=== PATIENT | female | born 1940 | race African-American/Black ===

== ENCOUNTER 2020-11-04 14:48 | Inpatient (IN) | payer OTHER, BC ==
[2020-11-04] MEDS ORDERED: NALOXONE HCL 0.4 MG/ML VIAL IVPUSH ONE (16:20)
[2020-11-04 16:21] LABS: BASO % 0.2 % (0-2.0); HEMATOCRIT 51.7 % (32.4-45.2); HEMOGLOBIN 16.6 GM/dL (10.7-15.3); LYMPH % 5.2 % (8-40); MCH 27.2 pg (25.7-33.7); MCHC 32.1 g/dl (32.0-36.0); MEAN CELL VOLUME 84.7 fl (80-96); MEAN PLT VOLUME 8.9 fl (7.5-11.1); MONO % 5.1 % (3.8-10.2); NEUT % 89.5 % (42.8-82.8); PLATELET COUNT 237 10^3/uL (134-434); RBC 6.11 M/mm3 (3.60-5.2); RDW 14.8 % (11.6-15.6); WHITE BLOOD COUNT 14.6 K/mm3 (4.0-10.0)
[2020-11-04] MEDS ORDERED: NALOXONE HCL 0.4 MG/ML VIAL ONE (16:22)
[2020-11-04 16:29] LABS: VENOUS BASE EXCESS 0.3 mmol/L (-2-2); VENOUS O2 SATURATION 44.8 % (70-80); VENOUS PCO2 51.1 mmHg (38-52); VENOUS PH 7.342 (7.310-7.410)
[2020-11-04 16:30] LABS: INR 0.92 (0.83-1.09); PROTHROMBIN TIME (PATIENT) 11.3 SEC (9.7-13.0)
[2020-11-04 16:33] LABS: ACTIVATED PTT 19.7 SECONDS (25.2-36.5)
[2020-11-04 16:40] LABS: MAGNESIUM 3.2 mg/dL (1.8-2.4)
[2020-11-04 16:44] LABS: PHOSPHOROUS 4.6 mg/dL (2.5-4.9)
[2020-11-04] MEDS ORDERED: SODIUM CHLORIDE 0.9% 1000 ML INFUS.BAG IV ONE (16:50)
[2020-11-04 16:55] LABS: LACTIC ACID 2.5 mmol/L (0.4-2.0)
[2020-11-04 17:12] LABS: CHLORIDE 111 mmol/L (98-107); SODIUM 149 mmol/L (136-145)
[2020-11-04 17:14] LABS: CALCIUM 10.8 mg/dL (8.5-10.1)
[2020-11-04 17:15] LABS: ALBUMIN 3.7 g/dl (3.4-5.0); ANION GAP 10 MMOL/L (8-16); BLOOD UREA NITROGEN 50.7 mg/dL (7-18); CO2 28 mmol/L (21-32); GLUCOSE,RANDOM 143 mg/dL (74-106)
[2020-11-04 17:18] LABS: CREATININE 1.2 mg/dL (0.55-1.3); SGOT/AST 60 U/L (15-37); SGPT/ALT 52 U/L (13-61)
[2020-11-04 17:20] LABS: BILIRUBIN,TOTAL 0.9 mg/dL (0.2-1); TOT PROT 8.9 g/dl (6.4-8.2)
[2020-11-04 17:21] LABS: ALK PHOS 83 U/L (45-117)
[2020-11-04] MEDS ORDERED: ASPIRIN 300 MG SUPP.RECT PR ONE (17:27)
[2020-11-04] MEDS ORDERED: VANCOMYCIN 1 GM in D5W (PRE-DOCKED) 1,000 MG/250 ML IVPB ONE (17:27)
[2020-11-04] MEDS ORDERED: PIPERACILLIN/TAZOB 4.5 GM 4.5 GM in DEXTROSE 5%-WATER 100 ML IVPB ONE (17:27)
[2020-11-04] MEDS ORDERED: SODIUM CHLORIDE 0.9% 500 ML INFUS.BAG IV ONE (17:56)
[2020-11-04] MEDS ORDERED: PIPERACILLIN/TAZOB 4.5 GM 4.5 GM/100 ML BAG IVPB ONE (18:10)
[2020-11-04] MEDS ORDERED: VANCOMYCIN 1 GRAM (PRE-DOCKED) 1,000 MG/250 ML BAG IVPB ONE (18:10)
[2020-11-04] MEDS ORDERED: ASPIRIN 300 MG SUPP.RECT RC ONE (18:10)
[2020-11-04 18:21] LABS: EPI CELLS 32 /uL (0-25.1); HYALINE CASTS 35 /uL (0-3.1); URINE APPEARANCE CLEAR; URINE BACTERIA 22 /uL (0-1359); URINE BILIRUBIN NEGATIVE (NEGATIVE); URINE COLOR DK YELLOW; URINE GLUCOSE (UA) NEGATIVE (NEGATIVE); URINE KETONE 1+ (NEGATIVE); URINE LEUK ESTERASE NEGATIVE (NEGATIVE); URINE NITRITE NEGATIVE (NEGATIVE); URINE PROTEIN 2+ (NEGATIVE); URINE WBC 23 /uL (0-25.8)
[2020-11-04 19:39] LABS: URINE RBC 42.1 /uL (0-23.9)
[2020-11-04 21:40] LABS: HIV INTERPRETATION NEGATIVE (NEGATIVE)
[2020-11-04 22:06] LABS: LACTIC ACID 2.1 mmol/L (0.4-2.0)
[2020-11-04] MEDS ORDERED: SODIUM CHLORIDE 0.45% 1,000 ML IV SCH (22:15)
[2020-11-04] MEDS: MUPIROCIN 2% TOPICAL OINTMENT FOR DECOLONIZATION NS SCH (23:00)
[2020-11-05 01:10] LABS: N-TERMINAL BNP 1034.2 pg/ml (5-450)
[2020-11-05 07:13] LABS: INR 0.97 (0.83-1.09)
[2020-11-05 07:17] LABS: HEMATOCRIT 41.3 % (32.4-45.2); HEMOGLOBIN 13.3 GM/dL (10.7-15.3); MCH 27.1 pg (25.7-33.7); MCHC 32.3 g/dl (32.0-36.0); MEAN CELL VOLUME 83.8 fl (80-96); MEAN PLT VOLUME 9.3 fl (7.5-11.1); PLATELET COUNT 186 10^3/uL (134-434); RBC 4.92 M/mm3 (3.60-5.2); RDW 14.4 % (11.6-15.6); WHITE BLOOD COUNT 18.8 K/mm3 (4.0-10.0)
[2020-11-05 07:35] LABS: BLOOD UREA NITROGEN 34.6 mg/dL (7-18)
[2020-11-05 07:36] LABS: PHOSPHOROUS 2.8 mg/dL (2.5-4.9)
[2020-11-05 07:38] LABS: CREATININE 0.8 mg/dL (0.55-1.3)
[2020-11-05 07:39] LABS: BILIRUBIN,TOTAL 0.8 mg/dL (0.2-1)
[2020-11-05 07:44] LABS: ALBUMIN 2.7 g/dl (3.4-5.0); CALCIUM 9.1 mg/dL (8.5-10.1); TOT PROT 6.7 g/dl (6.4-8.2)
[2020-11-05] MEDS ORDERED: LACTATED RINGERS SOLUTION 1,000 ML/1,000 ML INFUS.BAG IV SCH ×2 (08:30→12:45)
[2020-11-05] MEDS ORDERED: SODIUM CHLORIDE 0.45% 1,000 ML IV SCH (09:15)
[2020-11-05] MEDS ORDERED: PT OWN MED DRAWER 7, Y5N ONE ×2 (09:36→14:50)
[2020-11-05] MEDS: MUPIROCIN 2% TOPICAL OINTMENT FOR DECOLONIZATION NS SCH ×3 (09:37→21:59)
[2020-11-05 10:00] LABS: ANISOCYTOSIS 2+; MACROCYTOSIS 0; PLATELET ESTIMATE NORMAL; TEAR DROP CELLS 1+
[2020-11-05] MEDS ORDERED: PIPERACILLIN/TAZOB 4.5 GM 4.5 GM in DEXTROSE 5%-WATER 100 ML IVPB SCH ×2 (13:15→15:00)
[2020-11-05] MEDS ORDERED: TROPICAMIDE 1% OPHTH SOLN 15 ML BOTTLE OD ONE (13:34)
[2020-11-05] MEDS ORDERED: TROPICAMIDE 1% OPHTH SOLN 15 ML BOTTLE OU ONE (13:34)
[2020-11-05] MEDS ORDERED: PHENYLEPHRINE 2.5% OPHTH SOLN 15 ML BOTTLE OU ONE (13:34)
[2020-11-05] MEDS ORDERED: PHENYLEPHRINE 2.5% OPHTH SOLN 15 ML BOTTLE OD ONE (13:38)
[2020-11-05] MEDS ORDERED: DEXTROSE 5%-WATER 100 ML IVPB ONE ×3 (13:39→22:33)
[2020-11-05] MEDS ORDERED: PIPERACILLIN/TAZOBACTAM 4.5 GM VIAL IVPB ONE ×3 (13:39→22:33)
[2020-11-05] MEDS: PIPERACILLIN/TAZOB 4.5 GM 4.5 GM in DEXTROSE 5%-WATER 100 ML IVPB SCH ×2 (13:55→18:01)
[2020-11-05 16:07] LABS: CALCIUM 9.6 mg/dL (8.5-10.1)
[2020-11-05 16:08] LABS: BLOOD UREA NITROGEN 25.1 mg/dL (7-18)
[2020-11-05 16:11] LABS: CREATININE 0.8 mg/dL (0.55-1.3)
[2020-11-05] MEDS: VANCOMYCIN 1 GRAM (PRE-DOCKED) 1,000 MG/250 ML BAG IVPB SCH (16:38)
[2020-11-05] MEDS: ASPIRIN 300 MG SUPP.RECT RC SCH (16:38)
[2020-11-05] MEDS: AMINO ACIDS 4.25%/D5W 1,000 ML IV SCH (18:02)
[2020-11-05] MEDS: CHLORHEXIDINE GLUCONATE 4% CLEANSER FOR DECOLONIZATION TP SCH (21:59)
[2020-11-05] MEDS ORDERED: ACETAMINOPHEN 1000 MG/100 ML VIAL (NON FORMULARY) IVPB ONE (22:02)
[2020-11-06] MEDS: PIPERACILLIN/TAZOB 4.5 GM 4.5 GM in DEXTROSE 5%-WATER 100 ML IVPB SCH ×3 (02:22→18:09)
[2020-11-06] MEDS: AMINO ACIDS 4.25%/D5W 1,000 ML IV SCH ×2 (02:22→05:43)
[2020-11-06 07:12] LABS: BLOOD UREA NITROGEN 27.8 mg/dL (7-18); CALCIUM 8.6 mg/dL (8.5-10.1); HEMATOCRIT 40.2 % (32.4-45.2); MCH 27.7 pg (25.7-33.7); MCHC 32.4 g/dl (32.0-36.0); MEAN CELL VOLUME 85.5 fl (80-96); MEAN PLT VOLUME 8.9 fl (7.5-11.1); PLATELET COUNT 148 10^3/uL (134-434); RDW 14.6 % (11.6-15.6); WHITE BLOOD COUNT 12.6 K/mm3 (4.0-10.0)
[2020-11-06 07:15] LABS: CREATININE 0.7 mg/dL (0.55-1.3)
[2020-11-06 07:17] LABS: BILIRUBIN,TOTAL 0.8 mg/dL (0.2-1)
[2020-11-06 07:19] LABS: ALBUMIN 2.2 g/dl (3.4-5.0)
[2020-11-06] MEDS ORDERED: PIPERACILLIN/TAZOBACTAM 4.5 GM VIAL IVPB ONE ×2 (09:22→16:41)
[2020-11-06 09:25] LABS: ANISOCYTOSIS 1+; MACROCYTOSIS 0; PLATELET ESTIMATE DECREASED
[2020-11-06] MEDS: MUPIROCIN 2% TOPICAL OINTMENT FOR DECOLONIZATION NS SCH ×2 (09:38→21:26)
[2020-11-06] MEDS: ASPIRIN 300 MG SUPP.RECT RC SCH (09:38)
[2020-11-06] MEDS: LABETALOL HCL 5 MG/1 ML (100MG/20 ML VIAL) IVPUSH PRN ×3 (10:14→18:09)
[2020-11-06] MEDS ORDERED: SODIUM CHLORIDE 0.45% 1,000 ML IV SCH (10:15)
[2020-11-06 14:42] VITALS: BMI 16.0
[2020-11-06] MEDS ORDERED: DEXTROSE 5%-WATER 100 ML IVPB ONE (16:41)
[2020-11-06] MEDS: VANCOMYCIN 1 GRAM (PRE-DOCKED) 1,000 MG/250 ML BAG IVPB SCH (17:00)
[2020-11-06] MEDS ORDERED: HALOPERIDOL LACTATE 5 MG/ML IM ONE (18:00)
[2020-11-06] MEDS ORDERED: ACETAMINOPHEN 1000 MG/100 ML VIAL (NON FORMULARY) IVPB PRN (18:19)
[2020-11-06] MEDS: ATORVASTATIN CA 40 MG TABLET (FP) PO SCH (21:26)
[2020-11-06] MEDS: CHLORHEXIDINE GLUCONATE 4% CLEANSER FOR DECOLONIZATION TP SCH (21:26)
[2020-11-07] MEDS: PIPERACILLIN/TAZOB 4.5 GM 4.5 GM in DEXTROSE 5%-WATER 100 ML IVPB SCH ×3 (02:55→17:54)
[2020-11-07] MEDS ORDERED: PIPERACILLIN/TAZOBACTAM 4.5 GM VIAL IVPB ONE ×5 (03:27→19:57)
[2020-11-07] MEDS ORDERED: DEXTROSE 5%-WATER 100 ML IVPB ONE ×4 (03:27→19:57)
[2020-11-07 08:07] LABS: BASO % 0.1 % (0-2.0); EOS % 0.3 % (0-4.5); HEMATOCRIT 39.7 % (32.4-45.2); HEMOGLOBIN 12.9 GM/dL (10.7-15.3); MCH 27.6 pg (25.7-33.7); MCHC 32.4 g/dl (32.0-36.0); MONO % 5.2 % (3.8-10.2); NEUT % 81.4 % (42.8-82.8); PLATELET COUNT 171 10^3/uL (134-434); RBC 4.68 M/mm3 (3.60-5.2); RDW 14.2 % (11.6-15.6); WHITE BLOOD COUNT 12.8 K/mm3 (4.0-10.0)
[2020-11-07 08:25] LABS: CALCIUM 8.6 mg/dL (8.5-10.1)
[2020-11-07 08:26] LABS: ALBUMIN 2.1 g/dl (3.4-5.0); BLOOD UREA NITROGEN 13.4 mg/dL (7-18)
[2020-11-07 08:29] LABS: CREATININE 0.6 mg/dL (0.55-1.3); MAGNESIUM 2.1 mg/dL (1.8-2.4); PHOSPHOROUS 2.1 mg/dL (2.5-4.9)
[2020-11-07 08:30] LABS: BILIRUBIN,TOTAL 1.3 mg/dL (0.2-1)
[2020-11-07 08:31] LABS: TOT PROT 5.8 g/dl (6.4-8.2)
[2020-11-07] MEDS: ASPIRIN 81 MG CHEWABLE TABLETS PO SCH (09:53)
[2020-11-07] MEDS: MUPIROCIN 2% TOPICAL OINTMENT FOR DECOLONIZATION NS SCH ×2 (09:53→21:15)
[2020-11-07] MEDS: ENOXAPARIN NA (PORCINE) 30 MG/0.3 ML DISP.SYRIN SQ SCH (09:53)
[2020-11-07] MEDS ORDERED: POTASSIUM CHLORIDE ORAL LIQUID 20 MEQ/15 ML PO ONE (13:00)
[2020-11-07] MEDS ORDERED: NAPH,MB-DB/K PH,MBDB POWDER PACKET PO ONE (13:00)
[2020-11-07] MEDS: VANCOMYCIN 1 GRAM (PRE-DOCKED) 1,000 MG/250 ML BAG IVPB SCH (16:17)
[2020-11-07] MEDS: ATORVASTATIN CA 40 MG TABLET (FP) PO SCH (21:15)
[2020-11-07] MEDS: CHLORHEXIDINE GLUCONATE 4% CLEANSER FOR DECOLONIZATION TP SCH (21:15)
[2020-11-08] MEDS: PIPERACILLIN/TAZOB 4.5 GM 4.5 GM in DEXTROSE 5%-WATER 100 ML IVPB SCH (01:38)
[2020-11-08 07:49] LABS: BASO % 0.2 % (0-2.0); EOS % 0.2 % (0-4.5); HEMATOCRIT 39.4 % (32.4-45.2); HEMOGLOBIN 13.3 GM/dL (10.7-15.3); LYMPH % 16.9 % (8-40); MCH 28.3 pg (25.7-33.7); MCHC 33.7 g/dl (32.0-36.0); MEAN CELL VOLUME 84.1 fl (80-96); MONO % 7.3 % (3.8-10.2); NEUT % 75.4 % (42.8-82.8); PLATELET COUNT 194 10^3/uL (134-434); RBC 4.69 M/mm3 (3.60-5.2); RDW 14.1 % (11.6-15.6); WHITE BLOOD COUNT 8.8 K/mm3 (4.0-10.0)
[2020-11-08 08:09] LABS: ALBUMIN 2.2 g/dl (3.4-5.0); CALCIUM 8.7 mg/dL (8.5-10.1)
[2020-11-08 08:10] LABS: BLOOD UREA NITROGEN 9.8 mg/dL (7-18); MAGNESIUM 2.2 mg/dL (1.8-2.4)
[2020-11-08 08:13] LABS: BILIRUBIN,TOTAL 0.8 mg/dL (0.2-1); CREATININE 0.6 mg/dL (0.55-1.3); PHOSPHOROUS 2.1 mg/dL (2.5-4.9); TOT PROT 6.1 g/dl (6.4-8.2)
[2020-11-08] MEDS ORDERED: PT OWN MED DRAWER 7, Y5N ONE (10:05)
[2020-11-08] MEDS: ASPIRIN 81 MG CHEWABLE TABLETS PO SCH (10:06)
[2020-11-08] MEDS: MUPIROCIN 2% TOPICAL OINTMENT FOR DECOLONIZATION NS SCH ×2 (10:06→23:36)
[2020-11-08] MEDS: ENOXAPARIN NA (PORCINE) 30 MG/0.3 ML DISP.SYRIN SQ SCH (10:06)
[2020-11-08] MEDS: AMPICILLIN NA/SULBACTAM NA 3 GM in SODIUM CHLORIDE 100 ML IVPB SCH ×2 (11:18→15:48)
[2020-11-08] MEDS: ATORVASTATIN CA 40 MG TABLET (FP) PO SCH (23:36)
[2020-11-08] MEDS: CHLORHEXIDINE GLUCONATE 4% CLEANSER FOR DECOLONIZATION TP SCH (23:36)
[2020-11-09] MEDS: AMPICILLIN NA/SULBACTAM NA 3 GM in SODIUM CHLORIDE 100 ML IVPB SCH ×5 (01:00→21:55)
[2020-11-09 07:56] LABS: BASO % 0.1 % (0-2.0); EOS % 0.2 % (0-4.5); HEMATOCRIT 36.3 % (32.4-45.2); HEMOGLOBIN 11.7 GM/dL (10.7-15.3); LYMPH % 13.1 % (8-40); MCH 27.3 pg (25.7-33.7); MCHC 32.2 g/dl (32.0-36.0); MEAN CELL VOLUME 84.7 fl (80-96); MEAN PLT VOLUME 8.9 fl (7.5-11.1); MONO % 5.9 % (3.8-10.2); NEUT % 80.7 % (42.8-82.8); PLATELET COUNT 210 10^3/uL (134-434); RBC 4.28 M/mm3 (3.60-5.2); RDW 13.7 % (11.6-15.6); WHITE BLOOD COUNT 11.1 K/mm3 (4.0-10.0)
[2020-11-09 08:17] LABS: CALCIUM 8.6 mg/dL (8.5-10.1)
[2020-11-09 08:18] LABS: BLOOD UREA NITROGEN 9.7 mg/dL (7-18); MAGNESIUM 2.3 mg/dL (1.8-2.4)
[2020-11-09 08:21] LABS: BILIRUBIN,TOTAL 0.5 mg/dL (0.2-1); CREATININE 0.5 mg/dL (0.55-1.3); PHOSPHOROUS 2.6 mg/dL (2.5-4.9); TOT PROT 5.8 g/dl (6.4-8.2)
[2020-11-09] MEDS: ENOXAPARIN NA (PORCINE) 30 MG/0.3 ML DISP.SYRIN SQ SCH (09:40)
[2020-11-09] MEDS: ASPIRIN 81 MG CHEWABLE TABLETS PO SCH (09:40)
[2020-11-09] MEDS: LABETALOL HCL 5 MG/1 ML (100MG/20 ML VIAL) IVPUSH PRN (10:48)
[2020-11-09] MEDS: MUPIROCIN 2% TOPICAL OINTMENT FOR DECOLONIZATION NS SCH ×2 (11:00→21:55)
[2020-11-09] MEDS: amLODIPine BESYLATE 5 MG TABLET (FP) PO SCH (16:41)
[2020-11-09] MEDS: metoPROLOL SUCCINATE 25 MG TAB.SR.24H (FP) PO SCH (16:41)
[2020-11-09] MEDS ORDERED: PT OWN MED DRAWER 7, Y5N ONE (21:53)
[2020-11-09] MEDS: ATORVASTATIN CA 40 MG TABLET (FP) PO SCH (21:55)
[2020-11-09] MEDS: CHLORHEXIDINE GLUCONATE 4% CLEANSER FOR DECOLONIZATION TP SCH (21:55)
[2020-11-10] MEDS ORDERED: PT OWN MED DRAWER 7, Y5N ONE (02:12)
[2020-11-10] MEDS: AMPICILLIN NA/SULBACTAM NA 3 GM in SODIUM CHLORIDE 100 ML IVPB SCH ×4 (02:13→21:16)
[2020-11-10 07:08] LABS: HEMATOCRIT 35.7 % (32.4-45.2); HEMOGLOBIN 11.7 GM/dL (10.7-15.3); MCH 27.8 pg (25.7-33.7); MCHC 32.8 g/dl (32.0-36.0); MEAN CELL VOLUME 84.9 fl (80-96); MEAN PLT VOLUME 8.8 fl (7.5-11.1); PLATELET COUNT 227 10^3/uL (134-434); RBC 4.21 M/mm3 (3.60-5.2); RDW 13.9 % (11.6-15.6); WHITE BLOOD COUNT 11.9 K/mm3 (4.0-10.0)
[2020-11-10 07:32] LABS: BLOOD UREA NITROGEN 10.7 mg/dL (7-18); CALCIUM 8.8 mg/dL (8.5-10.1)
[2020-11-10 07:35] LABS: CREATININE 0.5 mg/dL (0.55-1.3)
[2020-11-10] MEDS ORDERED: AMINO ACIDS/PROTEIN HYDROLYS 30 ML LIQUID.PKT PO SCH (08:00)
[2020-11-10] MEDS: ENOXAPARIN NA (PORCINE) 30 MG/0.3 ML DISP.SYRIN SQ SCH (09:42)
[2020-11-10] MEDS: ASPIRIN 81 MG CHEWABLE TABLETS PO SCH (09:43)
[2020-11-10] MEDS: metoPROLOL SUCCINATE 25 MG TAB.SR.24H (FP) PO SCH (09:43)
[2020-11-10] MEDS: COLLAGENASE CLOSTRIDIUM HIST. 30 GRAMS TUBE TP SCH (09:43)
[2020-11-10] MEDS: amLODIPine BESYLATE 5 MG TABLET (FP) PO SCH (09:43)
[2020-11-10] MEDS: AMINO ACIDS 4.25%/D5W 1,000 ML IV SCH (16:05)
[2020-11-10] MEDS: MULTIVIT INJ. ADULT COMBO WITH VIT K 1 COMBO 10 ML VIAL IV SCH (16:05)
[2020-11-10] MEDS: AMINO ACIDS/PROTEIN HYDROLYS 30 ML LIQUID.PKT PO SCH (18:06)
[2020-11-10] MEDS ORDERED: AMPICILLIN NA/SULBACTAM NA 3 GM VIAL ONE (20:38)
[2020-11-10] MEDS ORDERED: SODIUM CHLORIDE 100 ML IVPB ONE (20:38)
[2020-11-10] MEDS: THIAMINE HCL 100 MG TABLET (FP) PO SCH (21:17)
[2020-11-10] MEDS: CHLORHEXIDINE GLUCONATE 4% CLEANSER FOR DECOLONIZATION TP SCH (21:17)
[2020-11-10] MEDS: ATORVASTATIN CA 40 MG TABLET (FP) PO SCH (21:17)
[2020-11-10] MEDS: ASCORBIC ACID 500 MG TABLET (FP) PO SCH (21:18)
[2020-11-11] MEDS ORDERED: SODIUM CHLORIDE 100 ML IVPB ONE ×4 (02:24→21:15)
[2020-11-11] MEDS ORDERED: AMPICILLIN NA/SULBACTAM NA 3 GM VIAL ONE ×4 (02:24→21:15)
[2020-11-11] MEDS: AMPICILLIN NA/SULBACTAM NA 3 GM in SODIUM CHLORIDE 100 ML IVPB SCH ×4 (02:41→21:52)
[2020-11-11 07:29] LABS: HEMATOCRIT 37.7 % (32.4-45.2); HEMOGLOBIN 12.3 GM/dL (10.7-15.3); MCH 27.4 pg (25.7-33.7); MCHC 32.7 g/dl (32.0-36.0); MEAN CELL VOLUME 83.7 fl (80-96); MEAN PLT VOLUME 8.8 fl (7.5-11.1); PLATELET COUNT 248 10^3/uL (134-434); RDW 14.2 % (11.6-15.6); WHITE BLOOD COUNT 12.9 K/mm3 (4.0-10.0)
[2020-11-11 07:50] LABS: CALCIUM 8.7 mg/dL (8.5-10.1); MAGNESIUM 2.3 mg/dL (1.8-2.4)
[2020-11-11 07:54] LABS: CREATININE 0.5 mg/dL (0.55-1.3); PHOSPHOROUS 2.3 mg/dL (2.5-4.9)
[2020-11-11] MEDS ORDERED: PT OWN MED DRAWER 7, Y5N ONE (08:02)
[2020-11-11] MEDS: AMINO ACIDS/PROTEIN HYDROLYS 30 ML LIQUID.PKT PO SCH ×2 (08:38→17:18)
[2020-11-11] MEDS: ASPIRIN 81 MG CHEWABLE TABLETS PO SCH (09:38)
[2020-11-11] MEDS: ZINC SULFATE 220 MG CAPSULE (FP) PO SCH (09:38)
[2020-11-11] MEDS: amLODIPine BESYLATE 5 MG TABLET (FP) PO SCH (09:38)
[2020-11-11] MEDS: ENOXAPARIN NA (PORCINE) 30 MG/0.3 ML DISP.SYRIN SQ SCH (09:38)
[2020-11-11] MEDS: ASCORBIC ACID 500 MG TABLET (FP) PO SCH ×2 (09:39→21:53)
[2020-11-11] MEDS: metoPROLOL SUCCINATE 25 MG TAB.SR.24H (FP) PO SCH (09:39)
[2020-11-11] MEDS: THIAMINE HCL 100 MG TABLET (FP) PO SCH ×2 (09:39→21:53)
[2020-11-11] MEDS ORDERED: amLODIPine BESYLATE 5 MG TABLET (FP) PO ONE (13:15)
[2020-11-11] MEDS ORDERED: POTASSIUM PHOSPHATE 30 MM in DEXTROSE 5%-WATER - 500 ML IVPB ONE (14:15)
[2020-11-11] MEDS: AMINO ACIDS 4.25%/D5W 1,000 ML IV SCH (14:28)
[2020-11-11] MEDS: MULTIVIT INJ. ADULT COMBO WITH VIT K 1 COMBO 10 ML VIAL IV SCH (15:55)
[2020-11-11] MEDS: COLLAGENASE CLOSTRIDIUM HIST. 30 GRAMS TUBE TP SCH (15:55)
[2020-11-11] MEDS: ATORVASTATIN CA 40 MG TABLET (FP) PO SCH (21:53)
[2020-11-11] MEDS: CHLORHEXIDINE GLUCONATE 4% CLEANSER FOR DECOLONIZATION TP SCH (21:53)
[2020-11-12] MEDS ORDERED: AMPICILLIN NA/SULBACTAM NA 3 GM VIAL ONE ×4 (02:45→21:01)
[2020-11-12] MEDS: AMPICILLIN NA/SULBACTAM NA 3 GM in SODIUM CHLORIDE 100 ML IVPB SCH ×4 (02:51→21:28)
[2020-11-12 06:32] LABS: HEMATOCRIT 37.6 % (32.4-45.2); HEMOGLOBIN 12.3 GM/dL (10.7-15.3); MCH 27.7 pg (25.7-33.7); MCHC 32.8 g/dl (32.0-36.0); MEAN CELL VOLUME 84.5 fl (80-96); MEAN PLT VOLUME 8.6 fl (7.5-11.1); PLATELET COUNT 283 10^3/uL (134-434); RBC 4.45 M/mm3 (3.60-5.2); RDW 14.1 % (11.6-15.6); WHITE BLOOD COUNT 13.6 K/mm3 (4.0-10.0)
[2020-11-12 06:53] LABS: ALBUMIN 2.3 g/dl (3.4-5.0); BLOOD UREA NITROGEN 13.5 mg/dL (7-18); CALCIUM 8.9 mg/dL (8.5-10.1); MAGNESIUM 2.3 mg/dL (1.8-2.4)
[2020-11-12 06:56] LABS: CREATININE 0.5 mg/dL (0.55-1.3); PHOSPHOROUS 3.1 mg/dL (2.5-4.9)
[2020-11-12 06:58] LABS: BILIRUBIN,TOTAL 0.5 mg/dL (0.2-1); TOT PROT 6.5 g/dl (6.4-8.2)
[2020-11-12] MEDS: AMINO ACIDS/PROTEIN HYDROLYS 30 ML LIQUID.PKT PO SCH ×2 (08:20→17:13)
[2020-11-12] MEDS ORDERED: SODIUM CHLORIDE 100 ML IVPB ONE ×3 (10:30→21:01)
[2020-11-12] MEDS: amLODIPine BESYLATE 5 MG TABLET (FP) PO SCH (10:32)
[2020-11-12] MEDS: ENOXAPARIN NA (PORCINE) 30 MG/0.3 ML DISP.SYRIN SQ SCH (10:32)
[2020-11-12] MEDS: LISINOPRIL 10 MG TABLET PO SCH (10:32)
[2020-11-12] MEDS: THIAMINE HCL 100 MG TABLET (FP) PO SCH ×2 (10:33→21:28)
[2020-11-12] MEDS: ASCORBIC ACID 500 MG TABLET (FP) PO SCH ×2 (10:33→21:29)
[2020-11-12] MEDS: ZINC SULFATE 220 MG CAPSULE (FP) PO SCH (10:33)
[2020-11-12] MEDS: ASPIRIN 81 MG CHEWABLE TABLETS PO SCH (10:33)
[2020-11-12] MEDS: COLLAGENASE CLOSTRIDIUM HIST. 30 GRAMS TUBE TP SCH (10:34)
[2020-11-12] MEDS ORDERED: PT OWN MED DRAWER 7, Y5N ONE (15:11)
[2020-11-12] MEDS: AMINO ACIDS 4.25%/D5W 1,000 ML IV SCH (16:34)
[2020-11-12] MEDS: MULTIVIT INJ. ADULT COMBO WITH VIT K 1 COMBO 10 ML VIAL IV SCH (16:35)
[2020-11-12] MEDS: CHLORHEXIDINE GLUCONATE 4% CLEANSER FOR DECOLONIZATION TP SCH (21:28)
[2020-11-12] MEDS: ATORVASTATIN CA 40 MG TABLET (FP) PO SCH (21:28)
[2020-11-13] MEDS ORDERED: AMPICILLIN NA/SULBACTAM NA 3 GM VIAL ONE ×5 (03:24→20:48)
[2020-11-13] MEDS ORDERED: SODIUM CHLORIDE 100 ML IVPB ONE ×4 (03:24→20:49)
[2020-11-13] MEDS: AMPICILLIN NA/SULBACTAM NA 3 GM in SODIUM CHLORIDE 100 ML IVPB SCH ×4 (03:39→21:31)
[2020-11-13 07:28] LABS: HEMATOCRIT 35.8 % (32.4-45.2); HEMOGLOBIN 11.8 GM/dL (10.7-15.3); MCH 27.9 pg (25.7-33.7); MEAN CELL VOLUME 84.4 fl (80-96); MEAN PLT VOLUME 8.9 fl (7.5-11.1); PLATELET COUNT 292 10^3/uL (134-434); RBC 4.24 M/mm3 (3.60-5.2); RDW 13.9 % (11.6-15.6); WHITE BLOOD COUNT 15.6 K/mm3 (4.0-10.0)
[2020-11-13 07:58] LABS: CALCIUM 8.7 mg/dL (8.5-10.1)
[2020-11-13 07:59] LABS: BLOOD UREA NITROGEN 17.7 mg/dL (7-18)
[2020-11-13 08:02] LABS: CREATININE 0.5 mg/dL (0.55-1.3)
[2020-11-13] MEDS: AMINO ACIDS/PROTEIN HYDROLYS 30 ML LIQUID.PKT PO SCH ×2 (09:26→17:50)
[2020-11-13] MEDS: ZINC SULFATE 220 MG CAPSULE (FP) PO SCH (09:27)
[2020-11-13] MEDS: COLLAGENASE CLOSTRIDIUM HIST. 30 GRAMS TUBE TP SCH (09:27)
[2020-11-13] MEDS: amLODIPine BESYLATE 5 MG TABLET (FP) PO SCH (09:27)
[2020-11-13] MEDS: THIAMINE HCL 100 MG TABLET (FP) PO SCH ×2 (09:27→21:30)
[2020-11-13] MEDS: ASCORBIC ACID 500 MG TABLET (FP) PO SCH ×2 (09:27→21:30)
[2020-11-13] MEDS: LISINOPRIL 10 MG TABLET PO SCH (09:27)
[2020-11-13] MEDS ORDERED: GLUCAGON 1 MG KIT IVPUSH ONE ×2 (10:30→16:30)
[2020-11-13] MEDS ORDERED: LABETALOL HCL 5 MG/1 ML (100MG/20 ML VIAL) IVPUSH PRN (11:10)
[2020-11-13] MEDS ORDERED: PT OWN MED DRAWER 7, Y5N ONE (15:48)
[2020-11-13] MEDS ORDERED: SODIUM CHLORIDE 250 ML IV ONE (17:00)
[2020-11-13] MEDS: MULTIVIT INJ. ADULT COMBO WITH VIT K 1 COMBO 10 ML VIAL IV SCH (17:50)
[2020-11-13] MEDS: AMINO ACIDS 4.25%/D5W 1,000 ML IV SCH (17:50)
[2020-11-13] MEDS: ATORVASTATIN CA 40 MG TABLET (FP) PO SCH (21:30)
[2020-11-13] MEDS: CHLORHEXIDINE GLUCONATE 4% CLEANSER FOR DECOLONIZATION TP SCH (21:30)
[2020-11-14] MEDS ORDERED: SODIUM CHLORIDE 100 ML IVPB ONE ×4 (01:25→21:29)
[2020-11-14] MEDS ORDERED: AMPICILLIN NA/SULBACTAM NA 3 GM VIAL ONE ×4 (01:25→21:28)
[2020-11-14] MEDS: AMPICILLIN NA/SULBACTAM NA 3 GM in SODIUM CHLORIDE 100 ML IVPB SCH ×4 (02:07→21:36)
[2020-11-14 06:24] LABS: HEMATOCRIT 33.8 % (32.4-45.2); HEMOGLOBIN 11.2 GM/dL (10.7-15.3); MCH 28.1 pg (25.7-33.7); MCHC 33.2 g/dl (32.0-36.0); MEAN CELL VOLUME 84.6 fl (80-96); MEAN PLT VOLUME 8.4 fl (7.5-11.1); PLATELET COUNT 296 10^3/uL (134-434); RDW 13.9 % (11.6-15.6); WHITE BLOOD COUNT 16.4 K/mm3 (4.0-10.0)
[2020-11-14 06:50] LABS: BLOOD UREA NITROGEN 16.8 mg/dL (7-18); CALCIUM 8.7 mg/dL (8.5-10.1)
[2020-11-14 06:51] LABS: MAGNESIUM 2.3 mg/dL (1.8-2.4)
[2020-11-14 06:54] LABS: CREATININE 0.5 mg/dL (0.55-1.3); PHOSPHOROUS 2.6 mg/dL (2.5-4.9)
[2020-11-14] MEDS: THIAMINE HCL 100 MG TABLET (FP) PO SCH ×2 (09:47→22:59)
[2020-11-14] MEDS: amLODIPine BESYLATE 5 MG TABLET (FP) PO SCH (09:47)
[2020-11-14] MEDS: ASCORBIC ACID 500 MG TABLET (FP) PO SCH ×2 (09:47→22:59)
[2020-11-14] MEDS: AMINO ACIDS/PROTEIN HYDROLYS 30 ML LIQUID.PKT PO SCH (09:47)
[2020-11-14] MEDS: ZINC SULFATE 220 MG CAPSULE (FP) PO SCH (09:48)
[2020-11-14] MEDS: ASPIRIN 81 MG CHEWABLE TABLETS PO SCH (09:48)
[2020-11-14] MEDS: COLLAGENASE CLOSTRIDIUM HIST. 30 GRAMS TUBE TP SCH (09:49)
[2020-11-14] MEDS: ENOXAPARIN NA (PORCINE) 30 MG/0.3 ML DISP.SYRIN SQ SCH (09:49)
[2020-11-14] MEDS: LISINOPRIL 10 MG TABLET PO SCH (09:49)
[2020-11-14] MEDS ORDERED: PT OWN MED DRAWER 7, Y5N ONE (15:56)
[2020-11-14] MEDS: AMINO ACIDS 4.25%/D5W 1,000 ML IV SCH (17:30)
[2020-11-14] MEDS: MULTIVIT INJ. ADULT COMBO WITH VIT K 1 COMBO 10 ML VIAL IV SCH (17:31)
[2020-11-14] MEDS: ATORVASTATIN CA 40 MG TABLET (FP) PO SCH (22:59)
[2020-11-14] MEDS: CHLORHEXIDINE GLUCONATE 4% CLEANSER FOR DECOLONIZATION TP SCH (22:59)
[2020-11-15] MEDS ORDERED: AMPICILLIN NA/SULBACTAM NA 3 GM VIAL ONE ×4 (01:01→20:21)
[2020-11-15] MEDS ORDERED: SODIUM CHLORIDE 100 ML IVPB ONE ×4 (01:01→20:22)
[2020-11-15] MEDS: AMPICILLIN NA/SULBACTAM NA 3 GM in SODIUM CHLORIDE 100 ML IVPB SCH ×4 (02:00→21:21)
[2020-11-15 06:48] LABS: BASO % 0.6 % (0-2.0); EOS % 0.2 % (0-4.5); HEMATOCRIT 34.1 % (32.4-45.2); HEMOGLOBIN 11.3 GM/dL (10.7-15.3); LYMPH % 16.6 % (8-40); MCH 28.2 pg (25.7-33.7); MCHC 33.2 g/dl (32.0-36.0); MEAN CELL VOLUME 84.8 fl (80-96); MEAN PLT VOLUME 8.4 fl (7.5-11.1); MONO % 6.9 % (3.8-10.2); NEUT % 75.7 % (42.8-82.8); PLATELET COUNT 304 10^3/uL (134-434); RBC 4.03 M/mm3 (3.60-5.2); RDW 13.9 % (11.6-15.6); WHITE BLOOD COUNT 10.9 K/mm3 (4.0-10.0)
[2020-11-15 07:02] LABS: CALCIUM 9.1 mg/dL (8.5-10.1)
[2020-11-15 07:05] LABS: CREATININE 0.6 mg/dL (0.55-1.3)
[2020-11-15] MEDS: AMINO ACIDS/PROTEIN HYDROLYS 30 ML LIQUID.PKT PO SCH (08:50)
[2020-11-15] MEDS: THIAMINE HCL 100 MG TABLET (FP) PO SCH ×2 (09:28→21:21)
[2020-11-15] MEDS: amLODIPine BESYLATE 5 MG TABLET (FP) PO SCH (09:28)
[2020-11-15] MEDS: LISINOPRIL 10 MG TABLET PO SCH (09:30)
[2020-11-15] MEDS: ZINC SULFATE 220 MG CAPSULE (FP) PO SCH (09:30)
[2020-11-15] MEDS: ASCORBIC ACID 500 MG TABLET (FP) PO SCH ×2 (09:30→21:22)
[2020-11-15] MEDS: ENOXAPARIN NA (PORCINE) 30 MG/0.3 ML DISP.SYRIN SQ SCH ×2 (09:31→09:36)
[2020-11-15] MEDS: ASPIRIN 81 MG CHEWABLE TABLETS PO SCH (09:31)
[2020-11-15] MEDS: COLLAGENASE CLOSTRIDIUM HIST. 30 GRAMS TUBE TP SCH (09:32)
[2020-11-15] MEDS: MULTIVIT INJ. ADULT COMBO WITH VIT K 1 COMBO 10 ML VIAL IV SCH (15:07)
[2020-11-15] MEDS: CHLORHEXIDINE GLUCONATE 4% CLEANSER FOR DECOLONIZATION TP SCH (21:21)
[2020-11-15] MEDS: ATORVASTATIN CA 40 MG TABLET (FP) PO SCH (21:23)
[2020-11-16] MEDS ORDERED: AMPICILLIN NA/SULBACTAM NA 3 GM VIAL ONE ×4 (01:59→21:09)
[2020-11-16] MEDS ORDERED: SODIUM CHLORIDE 100 ML IVPB ONE ×4 (02:00→21:10)
[2020-11-16] MEDS: AMPICILLIN NA/SULBACTAM NA 3 GM in SODIUM CHLORIDE 100 ML IVPB SCH ×4 (02:02→21:12)
[2020-11-16 07:49] LABS: BASO % 0.5 % (0-2.0); EOS % 0.9 % (0-4.5); HEMATOCRIT 31.7 % (32.4-45.2); HEMOGLOBIN 10.5 GM/dL (10.7-15.3); LYMPH % 24.6 % (8-40); MCH 28.1 pg (25.7-33.7); MCHC 33.2 g/dl (32.0-36.0); MEAN CELL VOLUME 84.6 fl (80-96); MEAN PLT VOLUME 8.1 fl (7.5-11.1); MONO % 7.4 % (3.8-10.2); NEUT % 66.6 % (42.8-82.8); PLATELET COUNT 316 10^3/uL (134-434); RBC 3.75 M/mm3 (3.60-5.2); RDW 14.1 % (11.6-15.6); WHITE BLOOD COUNT 6.2 K/mm3 (4.0-10.0)
[2020-11-16] MEDS: AMINO ACIDS/PROTEIN HYDROLYS 30 ML LIQUID.PKT PO SCH (08:16)
[2020-11-16 08:23] LABS: ALBUMIN 2.2 g/dl (3.4-5.0); BLOOD UREA NITROGEN 14.3 mg/dL (7-18); CALCIUM 9.1 mg/dL (8.5-10.1); MAGNESIUM 2.3 mg/dL (1.8-2.4)
[2020-11-16 08:26] LABS: CREATININE 0.5 mg/dL (0.55-1.3); PHOSPHOROUS 3.1 mg/dL (2.5-4.9)
[2020-11-16 08:27] LABS: BILIRUBIN,TOTAL 0.5 mg/dL (0.2-1); TOT PROT 6.1 g/dl (6.4-8.2)
[2020-11-16] MEDS ORDERED: PT OWN MED DRAWER 7, Y5N ONE ×2 (08:48→14:06)
[2020-11-16] MEDS: amLODIPine BESYLATE 5 MG TABLET (FP) PO SCH (08:59)
[2020-11-16] MEDS: THIAMINE HCL 100 MG TABLET (FP) PO SCH ×2 (08:59→21:12)
[2020-11-16] MEDS: ASCORBIC ACID 500 MG TABLET (FP) PO SCH ×2 (08:59→21:12)
[2020-11-16] MEDS: ZINC SULFATE 220 MG CAPSULE (FP) PO SCH (08:59)
[2020-11-16] MEDS: ENOXAPARIN NA (PORCINE) 30 MG/0.3 ML DISP.SYRIN SQ SCH (08:59)
[2020-11-16] MEDS: LISINOPRIL 10 MG TABLET PO SCH (09:00)
[2020-11-16] MEDS: COLLAGENASE CLOSTRIDIUM HIST. 30 GRAMS TUBE TP SCH (09:00)
[2020-11-16] MEDS: ASPIRIN 81 MG CHEWABLE TABLETS PO SCH (09:00)
[2020-11-16] MEDS: MULTIVIT INJ. ADULT COMBO WITH VIT K 1 COMBO 10 ML VIAL IV SCH (14:51)
[2020-11-16] MEDS: ATORVASTATIN CA 40 MG TABLET (FP) PO SCH (21:12)
[2020-11-16] MEDS: CHLORHEXIDINE GLUCONATE 4% CLEANSER FOR DECOLONIZATION TP SCH (21:12)
[2020-11-17] MEDS ORDERED: AMPICILLIN NA/SULBACTAM NA 3 GM VIAL ONE ×4 (03:24→20:23)
[2020-11-17] MEDS ORDERED: SODIUM CHLORIDE 100 ML IVPB ONE ×4 (03:24→20:24)
[2020-11-17] MEDS: AMPICILLIN NA/SULBACTAM NA 3 GM in SODIUM CHLORIDE 100 ML IVPB SCH ×4 (03:28→20:24)
[2020-11-17 06:20] LABS: BASO % 0.5 % (0-2.0); EOS % 0.7 % (0-4.5); HEMOGLOBIN 11.3 GM/dL (10.7-15.3); LYMPH % 19.1 % (8-40); MCH 28.4 pg (25.7-33.7); MCHC 33.1 g/dl (32.0-36.0); MEAN CELL VOLUME 85.7 fl (80-96); MEAN PLT VOLUME 8.2 fl (7.5-11.1); MONO % 8.4 % (3.8-10.2); NEUT % 71.3 % (42.8-82.8); PLATELET COUNT 315 10^3/uL (134-434); RBC 3.97 M/mm3 (3.60-5.2); RDW 13.9 % (11.6-15.6); WHITE BLOOD COUNT 7.5 K/mm3 (4.0-10.0)
[2020-11-17 06:45] LABS: ALBUMIN 2.4 g/dl (3.4-5.0); BLOOD UREA NITROGEN 15.6 mg/dL (7-18); CALCIUM 8.8 mg/dL (8.5-10.1)
[2020-11-17 06:46] LABS: MAGNESIUM 2.4 mg/dL (1.8-2.4)
[2020-11-17 06:49] LABS: CREATININE 0.5 mg/dL (0.55-1.3); PHOSPHOROUS 3.3 mg/dL (2.5-4.9)
[2020-11-17 06:50] LABS: BILIRUBIN,TOTAL 0.6 mg/dL (0.2-1); TOT PROT 6.7 g/dl (6.4-8.2)
[2020-11-17] MEDS ORDERED: PT OWN MED DRAWER 7, Y5N ONE (09:15)
[2020-11-17] MEDS: AMINO ACIDS/PROTEIN HYDROLYS 30 ML LIQUID.PKT PO SCH (09:29)
[2020-11-17] MEDS: ASCORBIC ACID 500 MG TABLET (FP) PO SCH (09:29)
[2020-11-17] MEDS: amLODIPine BESYLATE 5 MG TABLET (FP) PO SCH (09:30)
[2020-11-17] MEDS: ZINC SULFATE 220 MG CAPSULE (FP) PO SCH (09:30)
[2020-11-17] MEDS: ASPIRIN 81 MG CHEWABLE TABLETS PO SCH (09:30)
[2020-11-17] MEDS: THIAMINE HCL 100 MG TABLET (FP) PO SCH (09:30)
[2020-11-17] MEDS: COLLAGENASE CLOSTRIDIUM HIST. 30 GRAMS TUBE TP SCH (09:30)
[2020-11-17] MEDS: LISINOPRIL 10 MG TABLET PO SCH (09:30)
[2020-11-17] MEDS: ENOXAPARIN NA (PORCINE) 30 MG/0.3 ML DISP.SYRIN SQ SCH (09:31)
[2020-11-17] MEDS ORDERED: LORazepam 2 MG/ML SDV VIAL IVPUSH ONE (13:55)
[2020-11-17] MEDS: MULTIVIT INJ. ADULT COMBO WITH VIT K 1 COMBO 10 ML VIAL IV SCH (14:56)
[2020-11-17 16:58] LABS: CALCIUM 9.4 mg/dL (8.5-10.1)
[2020-11-17 17:02] LABS: CREATININE 0.5 mg/dL (0.55-1.3)
[2020-11-17] MEDS ORDERED: levETIRAcetam 500 MG TABLET (FP) PO ONE (19:40)
[2020-11-17] MEDS ORDERED: levETIRAcetam 500 MG/5 ML ORAL SOLUTION (UNIT-DOSE CUPS) GT ONE (21:00)
[2020-11-17] MEDS: ATORVASTATIN CA 40 MG TABLET (FP) GT SCH (22:21)
[2020-11-17] MEDS: THIAMINE HCL 100 MG TABLET (FP) NGT SCH (22:21)
[2020-11-17] MEDS: CHLORHEXIDINE GLUCONATE 4% CLEANSER FOR DECOLONIZATION TP SCH (22:22)
[2020-11-17] MEDS: ASCORBIC ACID 500 MG/5 ML UNIT DOSE CUP GT SCH (22:23)
[2020-11-18] MEDS ORDERED: SODIUM CHLORIDE 100 ML IVPB ONE ×4 (02:28→22:12)
[2020-11-18] MEDS ORDERED: AMPICILLIN NA/SULBACTAM NA 3 GM VIAL ONE ×4 (02:28→22:12)
[2020-11-18] MEDS: AMPICILLIN NA/SULBACTAM NA 3 GM in SODIUM CHLORIDE 100 ML IVPB SCH ×4 (02:29→22:13)
[2020-11-18 06:44] LABS: BASO % 0.5 % (0-2.0); EOS % 0.8 % (0-4.5); HEMATOCRIT 31.4 % (32.4-45.2); HEMOGLOBIN 10.5 GM/dL (10.7-15.3); LYMPH % 14.3 % (8-40); MCH 28.5 pg (25.7-33.7); MCHC 33.5 g/dl (32.0-36.0); MEAN PLT VOLUME 8.1 fl (7.5-11.1); MONO % 8.2 % (3.8-10.2); NEUT % 76.2 % (42.8-82.8); PLATELET COUNT 316 10^3/uL (134-434); RBC 3.69 M/mm3 (3.60-5.2); RDW 14.4 % (11.6-15.6); WHITE BLOOD COUNT 8.1 K/mm3 (4.0-10.0)
[2020-11-18 07:05] LABS: CALCIUM 9.2 mg/dL (8.5-10.1)
[2020-11-18 07:06] LABS: BLOOD UREA NITROGEN 14.8 mg/dL (7-18)
[2020-11-18 07:08] LABS: MAGNESIUM 2.5 mg/dL (1.8-2.4)
[2020-11-18 07:09] LABS: CREATININE 0.5 mg/dL (0.55-1.3); PHOSPHOROUS 3.4 mg/dL (2.5-4.9)
[2020-11-18 07:10] LABS: ALBUMIN 2.3 g/dl (3.4-5.0); BILIRUBIN,TOTAL 0.9 mg/dL (0.2-1)
[2020-11-18 07:15] LABS: TOT PROT 6.1 g/dl (6.4-8.2)
[2020-11-18] MEDS ORDERED: PT OWN MED DRAWER 7, Y5N ONE ×2 (08:47→16:10)
[2020-11-18] MEDS: AMINO ACIDS/PROTEIN HYDROLYS 30 ML LIQUID.PKT GT SCH (08:50)
[2020-11-18] MEDS: ZINC SULFATE 220 MG CAPSULE (FP) GT SCH (09:00)
[2020-11-18] MEDS: THIAMINE HCL 100 MG TABLET (FP) NGT SCH ×2 (09:00→22:14)
[2020-11-18] MEDS: ASPIRIN 81 MG CHEWABLE TABLETS GT SCH (09:00)
[2020-11-18] MEDS: ASCORBIC ACID 500 MG/5 ML UNIT DOSE CUP GT SCH ×2 (09:00→23:19)
[2020-11-18] MEDS: levETIRAcetam 500 MG/5 ML ORAL SOLUTION (UNIT-DOSE CUPS) GT SCH ×2 (09:00→23:19)
[2020-11-18] MEDS: amLODIPine BESYLATE 5 MG TABLET (FP) GT SCH (09:00)
[2020-11-18] MEDS: COLLAGENASE CLOSTRIDIUM HIST. 30 GRAMS TUBE TP SCH (09:01)
[2020-11-18] MEDS: LISINOPRIL 10 MG TABLET GT SCH (09:01)
[2020-11-18] MEDS: ENOXAPARIN NA (PORCINE) 30 MG/0.3 ML DISP.SYRIN SQ SCH (09:01)
[2020-11-18] MEDS ORDERED: levETIRAcetam 500 MG TABLET (FP) PO SCH (10:00)
[2020-11-18] MEDS: MULTIVIT INJ. ADULT COMBO WITH VIT K 1 COMBO 10 ML VIAL IV SCH (16:14)
[2020-11-18] MEDS: CHLORHEXIDINE GLUCONATE 4% CLEANSER FOR DECOLONIZATION TP SCH (22:14)
[2020-11-18] MEDS: ATORVASTATIN CA 40 MG TABLET (FP) GT SCH (22:14)
[2020-11-19] MEDS ORDERED: AMPICILLIN NA/SULBACTAM NA 3 GM VIAL ONE ×4 (03:44→21:45)
[2020-11-19] MEDS ORDERED: SODIUM CHLORIDE 100 ML IVPB ONE ×4 (03:45→21:45)
[2020-11-19] MEDS: AMPICILLIN NA/SULBACTAM NA 3 GM in SODIUM CHLORIDE 100 ML IVPB SCH ×4 (03:47→21:45)
[2020-11-19 06:54] LABS: BASO % 0.7 % (0-2.0); HEMATOCRIT 32.8 % (32.4-45.2); HEMOGLOBIN 10.6 GM/dL (10.7-15.3); LYMPH % 22.9 % (8-40); MCH 27.6 pg (25.7-33.7); MCHC 32.2 g/dl (32.0-36.0); MEAN CELL VOLUME 85.7 fl (80-96); MEAN PLT VOLUME 7.9 fl (7.5-11.1); MONO % 9.8 % (3.8-10.2); NEUT % 65.6 % (42.8-82.8); PLATELET COUNT 349 10^3/uL (134-434); RBC 3.82 M/mm3 (3.60-5.2); RDW 14.5 % (11.6-15.6); WHITE BLOOD COUNT 7.1 K/mm3 (4.0-10.0)
[2020-11-19 07:13] LABS: CALCIUM 9.4 mg/dL (8.5-10.1)
[2020-11-19 07:14] LABS: ALBUMIN 2.4 g/dl (3.4-5.0); BLOOD UREA NITROGEN 14.2 mg/dL (7-18); MAGNESIUM 2.6 mg/dL (1.8-2.4)
[2020-11-19 07:15] LABS: CREATININE 0.5 mg/dL (0.55-1.3); PHOSPHOROUS 3.4 mg/dL (2.5-4.9)
[2020-11-19 07:17] LABS: BILIRUBIN,TOTAL 0.5 mg/dL (0.2-1); TOT PROT 6.6 g/dl (6.4-8.2)
[2020-11-19] MEDS: AMINO ACIDS/PROTEIN HYDROLYS 30 ML LIQUID.PKT GT SCH (09:00)
[2020-11-19] MEDS: amLODIPine BESYLATE 5 MG TABLET (FP) GT SCH (09:00)
[2020-11-19] MEDS: levETIRAcetam 500 MG/5 ML ORAL SOLUTION (UNIT-DOSE CUPS) GT SCH ×2 (09:00→23:11)
[2020-11-19] MEDS: LISINOPRIL 10 MG TABLET GT SCH (09:00)
[2020-11-19] MEDS ORDERED: PT OWN MED DRAWER 7, Y5N ONE (09:25)
[2020-11-19] MEDS: ENOXAPARIN NA (PORCINE) 30 MG/0.3 ML DISP.SYRIN SQ SCH (09:27)
[2020-11-19] MEDS: ASPIRIN 81 MG CHEWABLE TABLETS GT SCH (09:28)
[2020-11-19] MEDS: ASCORBIC ACID 500 MG/5 ML UNIT DOSE CUP GT SCH ×2 (09:29→23:11)
[2020-11-19] MEDS: THIAMINE HCL 100 MG TABLET (FP) NGT SCH ×2 (09:30→22:28)
[2020-11-19] MEDS: ZINC SULFATE 220 MG CAPSULE (FP) GT SCH (09:30)
[2020-11-19] MEDS: COLLAGENASE CLOSTRIDIUM HIST. 30 GRAMS TUBE TP SCH (11:00)
[2020-11-19] MEDS: MULTIVIT INJ. ADULT COMBO WITH VIT K 1 COMBO 10 ML VIAL IV SCH (16:47)
[2020-11-19] MEDS: CHLORHEXIDINE GLUCONATE 4% CLEANSER FOR DECOLONIZATION TP SCH (22:28)
[2020-11-19] MEDS: ATORVASTATIN CA 40 MG TABLET (FP) GT SCH (22:28)
[2020-11-20] MEDS ORDERED: SODIUM CHLORIDE 100 ML IVPB ONE ×4 (02:13→20:00)
[2020-11-20] MEDS ORDERED: AMPICILLIN NA/SULBACTAM NA 3 GM VIAL ONE ×4 (02:13→20:00)
[2020-11-20] MEDS: AMPICILLIN NA/SULBACTAM NA 3 GM in SODIUM CHLORIDE 100 ML IVPB SCH ×4 (02:15→20:11)
[2020-11-20 07:19] LABS: BASO % 0.6 % (0-2.0); EOS % 1.5 % (0-4.5); HEMATOCRIT 31.4 % (32.4-45.2); HEMOGLOBIN 10.5 GM/dL (10.7-15.3); LYMPH % 20.8 % (8-40); MCH 28.6 pg (25.7-33.7); MCHC 33.4 g/dl (32.0-36.0); MEAN CELL VOLUME 85.4 fl (80-96); MONO % 9.9 % (3.8-10.2); NEUT % 67.2 % (42.8-82.8); PLATELET COUNT 340 10^3/uL (134-434); RBC 3.68 M/mm3 (3.60-5.2); RDW 15.1 % (11.6-15.6); WHITE BLOOD COUNT 6.4 K/mm3 (4.0-10.0)
[2020-11-20 07:39] LABS: CALCIUM 9.3 mg/dL (8.5-10.1)
[2020-11-20 07:40] LABS: ALBUMIN 2.4 g/dl (3.4-5.0); BLOOD UREA NITROGEN 14.9 mg/dL (7-18); MAGNESIUM 2.6 mg/dL (1.8-2.4)
[2020-11-20 07:41] LABS: CREATININE 0.5 mg/dL (0.55-1.3)
[2020-11-20 07:42] LABS: PHOSPHOROUS 3.6 mg/dL (2.5-4.9)
[2020-11-20 07:43] LABS: BILIRUBIN,TOTAL 0.3 mg/dL (0.2-1); TOT PROT 6.4 g/dl (6.4-8.2)
[2020-11-20] MEDS: AMINO ACIDS/PROTEIN HYDROLYS 30 ML LIQUID.PKT GT SCH (09:02)
[2020-11-20] MEDS: levETIRAcetam 500 MG/5 ML ORAL SOLUTION (UNIT-DOSE CUPS) GT SCH ×2 (10:00→22:40)
[2020-11-20] MEDS: ASPIRIN 81 MG CHEWABLE TABLETS GT SCH (10:00)
[2020-11-20] MEDS: amLODIPine BESYLATE 5 MG TABLET (FP) GT SCH (10:00)
[2020-11-20] MEDS: THIAMINE HCL 100 MG TABLET (FP) NGT SCH ×2 (10:00→22:14)
[2020-11-20] MEDS: ZINC SULFATE 220 MG CAPSULE (FP) GT SCH (10:00)
[2020-11-20] MEDS: ENOXAPARIN NA (PORCINE) 30 MG/0.3 ML DISP.SYRIN SQ SCH (10:00)
[2020-11-20] MEDS: LISINOPRIL 10 MG TABLET GT SCH (10:00)
[2020-11-20] MEDS: ASCORBIC ACID 500 MG/5 ML UNIT DOSE CUP GT SCH ×2 (10:34→22:40)
[2020-11-20] MEDS: COLLAGENASE CLOSTRIDIUM HIST. 30 GRAMS TUBE TP SCH (12:00)
[2020-11-20] MEDS: MULTIVIT INJ. ADULT COMBO WITH VIT K 1 COMBO 10 ML VIAL IV SCH (16:24)
[2020-11-20] MEDS: ATORVASTATIN CA 40 MG TABLET (FP) GT SCH (22:14)
[2020-11-20] MEDS: CHLORHEXIDINE GLUCONATE 4% CLEANSER FOR DECOLONIZATION TP SCH (22:14)
[2020-11-21] MEDS ORDERED: AMPICILLIN NA/SULBACTAM NA 3 GM VIAL ONE ×4 (02:56→21:23)
[2020-11-21] MEDS ORDERED: SODIUM CHLORIDE 100 ML IVPB ONE ×4 (02:57→21:24)
[2020-11-21] MEDS: AMPICILLIN NA/SULBACTAM NA 3 GM in SODIUM CHLORIDE 100 ML IVPB SCH ×4 (02:58→22:33)
[2020-11-21 06:43] LABS: BASO % 0.6 % (0-2.0); EOS % 1.1 % (0-4.5); HEMATOCRIT 33.9 % (32.4-45.2); HEMOGLOBIN 11.2 GM/dL (10.7-15.3); LYMPH % 23.9 % (8-40); MCH 28.3 pg (25.7-33.7); MEAN CELL VOLUME 85.8 fl (80-96); MEAN PLT VOLUME 7.9 fl (7.5-11.1); NEUT % 64.4 % (42.8-82.8); PLATELET COUNT 380 10^3/uL (134-434); RBC 3.95 M/mm3 (3.60-5.2); RDW 15.1 % (11.6-15.6); WHITE BLOOD COUNT 6.5 K/mm3 (4.0-10.0)
[2020-11-21 07:05] LABS: CALCIUM 9.7 mg/dL (8.5-10.1)
[2020-11-21 07:06] LABS: ALBUMIN 2.7 g/dl (3.4-5.0); BLOOD UREA NITROGEN 13.1 mg/dL (7-18); MAGNESIUM 2.6 mg/dL (1.8-2.4)
[2020-11-21 07:09] LABS: CREATININE 0.5 mg/dL (0.55-1.3); PHOSPHOROUS 3.3 mg/dL (2.5-4.9)
[2020-11-21 07:10] LABS: BILIRUBIN,TOTAL 0.4 mg/dL (0.2-1)
[2020-11-21] MEDS ORDERED: PT OWN MED DRAWER 7, Y5N ONE ×2 (10:25→21:24)
[2020-11-21] MEDS: THIAMINE HCL 100 MG TABLET (FP) NGT SCH ×2 (10:31→22:35)
[2020-11-21] MEDS: ZINC SULFATE 220 MG CAPSULE (FP) GT SCH (10:31)
[2020-11-21] MEDS: ASPIRIN 81 MG CHEWABLE TABLETS GT SCH (10:31)
[2020-11-21] MEDS: AMINO ACIDS/PROTEIN HYDROLYS 30 ML LIQUID.PKT GT SCH (10:31)
[2020-11-21] MEDS: ENOXAPARIN NA (PORCINE) 30 MG/0.3 ML DISP.SYRIN SQ SCH (10:31)
[2020-11-21] MEDS: amLODIPine BESYLATE 5 MG TABLET (FP) GT SCH (10:31)
[2020-11-21] MEDS: LISINOPRIL 10 MG TABLET GT SCH (10:32)
[2020-11-21] MEDS: COLLAGENASE CLOSTRIDIUM HIST. 30 GRAMS TUBE TP SCH (10:32)
[2020-11-21] MEDS: levETIRAcetam 500 MG/5 ML ORAL SOLUTION (UNIT-DOSE CUPS) GT SCH ×2 (11:26→22:34)
[2020-11-21] MEDS: ASCORBIC ACID 500 MG/5 ML UNIT DOSE CUP GT SCH ×2 (11:26→22:34)
[2020-11-21] MEDS: MULTIVIT-MINERALS ORAL LIQUID PEG SCH (15:15)
[2020-11-21] MEDS: CHLORHEXIDINE GLUCONATE 4% CLEANSER FOR DECOLONIZATION TP SCH (22:33)
[2020-11-21] MEDS: ATORVASTATIN CA 40 MG TABLET (FP) GT SCH (22:34)
[2020-11-22] MEDS: AMPICILLIN NA/SULBACTAM NA 3 GM in SODIUM CHLORIDE 100 ML IVPB SCH ×4 (03:30→22:04)
[2020-11-22] MEDS ORDERED: SODIUM CHLORIDE 100 ML IVPB ONE ×4 (03:46→21:28)
[2020-11-22] MEDS ORDERED: AMPICILLIN NA/SULBACTAM NA 3 GM VIAL ONE ×4 (03:46→21:28)
[2020-11-22 08:15] LABS: BASO % 0.4 % (0-2.0); EOS % 1.3 % (0-4.5); HEMATOCRIT 31.2 % (32.4-45.2); HEMOGLOBIN 10.3 GM/dL (10.7-15.3); LYMPH % 26.3 % (8-40); MCH 28.4 pg (25.7-33.7); MEAN CELL VOLUME 86.1 fl (80-96); MEAN PLT VOLUME 8.1 fl (7.5-11.1); MONO % 11.4 % (3.8-10.2); NEUT % 60.6 % (42.8-82.8); PLATELET COUNT 355 10^3/uL (134-434); RBC 3.62 M/mm3 (3.60-5.2); WHITE BLOOD COUNT 5.8 K/mm3 (4.0-10.0)
[2020-11-22 08:22] LABS: ALBUMIN 2.3 g/dl (3.4-5.0); BLOOD UREA NITROGEN 15.8 mg/dL (7-18); MAGNESIUM 2.5 mg/dL (1.8-2.4)
[2020-11-22 08:25] LABS: CREATININE 0.5 mg/dL (0.55-1.3)
[2020-11-22 08:27] LABS: BILIRUBIN,TOTAL 0.4 mg/dL (0.2-1); TOT PROT 6.3 g/dl (6.4-8.2)
[2020-11-22] MEDS: ENOXAPARIN NA (PORCINE) 30 MG/0.3 ML DISP.SYRIN SQ SCH (09:14)
[2020-11-22] MEDS: ASPIRIN 81 MG CHEWABLE TABLETS GT SCH (09:14)
[2020-11-22] MEDS: AMINO ACIDS/PROTEIN HYDROLYS 30 ML LIQUID.PKT GT SCH (09:14)
[2020-11-22] MEDS: THIAMINE HCL 100 MG TABLET (FP) NGT SCH ×2 (09:15→22:05)
[2020-11-22] MEDS: LISINOPRIL 10 MG TABLET GT SCH (09:15)
[2020-11-22] MEDS: ASCORBIC ACID 500 MG/5 ML UNIT DOSE CUP GT SCH ×2 (09:15→22:04)
[2020-11-22] MEDS: COLLAGENASE CLOSTRIDIUM HIST. 30 GRAMS TUBE TP SCH (09:15)
[2020-11-22] MEDS: amLODIPine BESYLATE 5 MG TABLET (FP) GT SCH (09:15)
[2020-11-22] MEDS: ZINC SULFATE 220 MG CAPSULE (FP) GT SCH (09:15)
[2020-11-22] MEDS: levETIRAcetam 500 MG/5 ML ORAL SOLUTION (UNIT-DOSE CUPS) GT SCH ×2 (09:24→22:04)
[2020-11-22] MEDS: MULTIVIT-MINERALS ORAL LIQUID PEG SCH (09:24)
[2020-11-22] MEDS ORDERED: PT OWN MED DRAWER 7, Y5N ONE (21:30)
[2020-11-22] MEDS: CHLORHEXIDINE GLUCONATE 4% CLEANSER FOR DECOLONIZATION TP SCH (22:05)
[2020-11-22] MEDS: ATORVASTATIN CA 40 MG TABLET (FP) GT SCH (22:05)
[2020-11-23] MEDS ORDERED: SODIUM CHLORIDE 100 ML IVPB ONE ×4 (02:24→21:07)
[2020-11-23] MEDS ORDERED: AMPICILLIN NA/SULBACTAM NA 3 GM VIAL ONE ×4 (02:24→21:07)
[2020-11-23] MEDS: AMPICILLIN NA/SULBACTAM NA 3 GM in SODIUM CHLORIDE 100 ML IVPB SCH ×4 (03:02→22:06)
[2020-11-23] MEDS: AMINO ACIDS/PROTEIN HYDROLYS 30 ML LIQUID.PKT GT SCH (08:22)
[2020-11-23] MEDS ORDERED: AMPICILLIN NA/SULBACTAM NA 3 GM in SODIUM CHLORIDE 100 ML IVPB SCH (09:15)
[2020-11-23] MEDS ORDERED: PT OWN MED DRAWER 7, Y5N ONE ×2 (10:33→21:09)
[2020-11-23] MEDS: ASPIRIN 81 MG CHEWABLE TABLETS GT SCH (10:42)
[2020-11-23] MEDS: ZINC SULFATE 220 MG CAPSULE (FP) GT SCH (10:42)
[2020-11-23] MEDS: THIAMINE HCL 100 MG TABLET (FP) NGT SCH ×2 (10:42→22:02)
[2020-11-23] MEDS: levETIRAcetam 500 MG/5 ML ORAL SOLUTION (UNIT-DOSE CUPS) GT SCH ×2 (10:43→22:02)
[2020-11-23] MEDS: LISINOPRIL 10 MG TABLET GT SCH (10:43)
[2020-11-23] MEDS: ENOXAPARIN NA (PORCINE) 30 MG/0.3 ML DISP.SYRIN SQ SCH (10:43)
[2020-11-23] MEDS: ASCORBIC ACID 500 MG/5 ML UNIT DOSE CUP GT SCH ×2 (10:44→22:01)
[2020-11-23] MEDS: MULTIVIT-MINERALS ORAL LIQUID PEG SCH (10:44)
[2020-11-23] MEDS: amLODIPine BESYLATE 5 MG TABLET (FP) GT SCH (10:46)
[2020-11-23] MEDS: COLLAGENASE CLOSTRIDIUM HIST. 30 GRAMS TUBE TP SCH (14:00)
[2020-11-23] MEDS: ATORVASTATIN CA 40 MG TABLET (FP) GT SCH (22:02)
[2020-11-23] MEDS: CHLORHEXIDINE GLUCONATE 4% CLEANSER FOR DECOLONIZATION TP SCH (22:06)
[2020-11-24] MEDS ORDERED: SODIUM CHLORIDE 100 ML IVPB ONE ×4 (03:47→20:48)
[2020-11-24] MEDS: AMPICILLIN NA/SULBACTAM NA 3 GM in SODIUM CHLORIDE 100 ML IVPB SCH ×4 (03:47→21:10)
[2020-11-24] MEDS ORDERED: AMPICILLIN NA/SULBACTAM NA 3 GM VIAL ONE ×4 (03:47→20:48)
[2020-11-24 08:39] LABS: BASO % 0.4 % (0-2.0); EOS % 2.7 % (0-4.5); HEMATOCRIT 31.5 % (32.4-45.2); HEMOGLOBIN 10.4 GM/dL (10.7-15.3); LYMPH % 20.9 % (8-40); MCH 28.6 pg (25.7-33.7); MCHC 33.1 g/dl (32.0-36.0); MEAN CELL VOLUME 86.4 fl (80-96); MEAN PLT VOLUME 8.2 fl (7.5-11.1); MONO % 9.7 % (3.8-10.2); NEUT % 66.3 % (42.8-82.8); PLATELET COUNT 373 10^3/uL (134-434); RBC 3.65 M/mm3 (3.60-5.2); RDW 16.1 % (11.6-15.6)
[2020-11-24 08:54] LABS: ALBUMIN 2.3 g/dl (3.4-5.0); CALCIUM 9.5 mg/dL (8.5-10.1)
[2020-11-24 08:55] LABS: MAGNESIUM 2.4 mg/dL (1.8-2.4)
[2020-11-24 08:58] LABS: CREATININE 0.5 mg/dL (0.55-1.3); PHOSPHOROUS 3.6 mg/dL (2.5-4.9)
[2020-11-24 08:59] LABS: BILIRUBIN,TOTAL 0.3 mg/dL (0.2-1); TOT PROT 6.2 g/dl (6.4-8.2)
[2020-11-24] MEDS: AMINO ACIDS/PROTEIN HYDROLYS 30 ML LIQUID.PKT GT SCH (09:35)
[2020-11-24] MEDS: ASPIRIN 81 MG CHEWABLE TABLETS GT SCH (10:35)
[2020-11-24] MEDS: ENOXAPARIN NA (PORCINE) 30 MG/0.3 ML DISP.SYRIN SQ SCH (10:35)
[2020-11-24] MEDS: amLODIPine BESYLATE 5 MG TABLET (FP) GT SCH (10:36)
[2020-11-24] MEDS: THIAMINE HCL 100 MG TABLET (FP) NGT SCH ×2 (10:36→21:14)
[2020-11-24] MEDS: ZINC SULFATE 220 MG CAPSULE (FP) GT SCH (10:36)
[2020-11-24] MEDS: LISINOPRIL 10 MG TABLET GT SCH (10:37)
[2020-11-24] MEDS: levETIRAcetam 500 MG/5 ML ORAL SOLUTION (UNIT-DOSE CUPS) GT SCH ×2 (10:39→21:13)
[2020-11-24] MEDS: ASCORBIC ACID 500 MG/5 ML UNIT DOSE CUP GT SCH ×2 (10:40→21:13)
[2020-11-24] MEDS: MULTIVIT-MINERALS ORAL LIQUID PEG SCH (10:40)
[2020-11-24] MEDS: COLLAGENASE CLOSTRIDIUM HIST. 30 GRAMS TUBE TP SCH (10:40)
[2020-11-24] MEDS: CHLORHEXIDINE GLUCONATE 4% CLEANSER FOR DECOLONIZATION TP SCH (21:14)
[2020-11-24] MEDS: ATORVASTATIN CA 40 MG TABLET (FP) GT SCH (21:14)
[2020-11-25] MEDS: AMPICILLIN NA/SULBACTAM NA 3 GM in SODIUM CHLORIDE 100 ML IVPB SCH ×3 (03:30→15:08)
[2020-11-25] MEDS ORDERED: AMPICILLIN NA/SULBACTAM NA 3 GM VIAL ONE ×3 (04:07→15:07)
[2020-11-25] MEDS ORDERED: SODIUM CHLORIDE 100 ML IVPB ONE ×3 (04:08→15:07)
[2020-11-25 08:08] VITALS: BP 126/68; PULSE 80; TEMP 98.8
[2020-11-25 08:14] LABS: BASO % 0.3 % (0-2.0); EOS % 2.4 % (0-4.5); HEMATOCRIT 32.2 % (32.4-45.2); HEMOGLOBIN 10.7 GM/dL (10.7-15.3); LYMPH % 20.9 % (8-40); MCH 28.4 pg (25.7-33.7); MCHC 33.1 g/dl (32.0-36.0); MEAN CELL VOLUME 85.9 fl (80-96); MEAN PLT VOLUME 7.9 fl (7.5-11.1); MONO % 10.2 % (3.8-10.2); NEUT % 66.2 % (42.8-82.8); PLATELET COUNT 341 10^3/uL (134-434); RBC 3.75 M/mm3 (3.60-5.2); RDW 16.1 % (11.6-15.6); WHITE BLOOD COUNT 5.8 K/mm3 (4.0-10.0)
[2020-11-25 08:26] LABS: ALBUMIN 2.4 g/dl (3.4-5.0); BLOOD UREA NITROGEN 15.8 mg/dL (7-18)
[2020-11-25 08:27] LABS: MAGNESIUM 2.5 mg/dL (1.8-2.4)
[2020-11-25 08:29] LABS: CREATININE 0.5 mg/dL (0.55-1.3); PHOSPHOROUS 3.5 mg/dL (2.5-4.9)
[2020-11-25 08:30] LABS: BILIRUBIN,TOTAL 0.3 mg/dL (0.2-1); TOT PROT 6.5 g/dl (6.4-8.2)
[2020-11-25] MEDS: ENOXAPARIN NA (PORCINE) 30 MG/0.3 ML DISP.SYRIN SQ SCH (10:34)
[2020-11-25] MEDS: AMINO ACIDS/PROTEIN HYDROLYS 30 ML LIQUID.PKT GT SCH (10:34)
[2020-11-25] MEDS: amLODIPine BESYLATE 5 MG TABLET (FP) GT SCH (10:34)
[2020-11-25] MEDS: THIAMINE HCL 100 MG TABLET (FP) NGT SCH (10:35)
[2020-11-25] MEDS: ZINC SULFATE 220 MG CAPSULE (FP) GT SCH (10:35)
[2020-11-25] MEDS: ASPIRIN 81 MG CHEWABLE TABLETS GT SCH (10:35)
[2020-11-25] MEDS: LISINOPRIL 10 MG TABLET GT SCH (10:35)
[2020-11-25] MEDS: COLLAGENASE CLOSTRIDIUM HIST. 30 GRAMS TUBE TP SCH (10:36)
[2020-11-25] MEDS: levETIRAcetam 500 MG/5 ML ORAL SOLUTION (UNIT-DOSE CUPS) GT SCH (10:36)
[2020-11-25] MEDS: MULTIVIT-MINERALS ORAL LIQUID PEG SCH (10:37)
[2020-11-25] MEDS: ASCORBIC ACID 500 MG/5 ML UNIT DOSE CUP GT SCH (10:38)
== END 2020-11-25 17:41 | DRG 871 ==
LOC: JER 14:48 → EDBD 17:19 → JERBED 17:19 → JICU 21:02 → J2W 11-08 13:37 → J4W 11-21 08:34
PROVIDERS: ADMIT Internal Medicine; ATTEND Internal Medicine
PROC: 0DH63UZ Insertion of Feeding Device into Stomach, Percutaneous Approach (ICD-10-PCS; principal; 2020-11-13)
PROC: BD12YZZ Fluoroscopy of Stomach using Other Contrast (ICD-10-PCS; 2020-11-13)
PROC: 0HBRXZZ Excision of Toe Nail, External Approach (ICD-10-PCS; 2020-11-17)
PROC: 02HV33Z Insertion of Infusion Device into Superior Vena Cava, Percutaneous Approach (ICD-10-PCS; 2020-11-24)
DX: A41.01 Sepsis due to Methicillin susceptible Staphylococcus aureus (principal); I63.9 Cerebral infarction, unspecified; E43 Unspecified severe protein-calorie malnutrition; G93.41 Metabolic encephalopathy; E87.0 Hyperosmolality and hypernatremia; Z68.1 Body mass index [BMI] 19.9 or less, adult; M62.82 Rhabdomyolysis; H33.21 Serous retinal detachment, right eye; I24.8 Other forms of acute ischemic heart disease; I47.2 Ventricular tachycardia; R64 Cachexia; E87.1 Hypo-osmolality and hyponatremia; L89.612 Pressure ulcer of right heel, stage 2; E83.41 Hypermagnesemia; E86.0 Dehydration; E83.52 Hypercalcemia; R41.82 Altered mental status, unspecified; L89.150 Pressure ulcer of sacral region, unstageable; B35.1 Tinea unguium; D72.829 Elevated white blood cell count, unspecified
CPT/HCPCS: 36415; 36569; 49440; 70450-TC; 70551-TC; 71045-TC-FY; 72125-TC; 74018-TC-FY; 74150-TC; 77001-TC-FY; 80048; 80053; 80061; 80307; 81003; 82010; 82140; 82550; 82553; 82607; 82746; 82803; 82962; 83036; 83605; 83735; 83880; 84100; 84443; 84484; 85025; 85027; 85610; 85730; 86480; 86850; 86900; 86901; 87040; 87086; 87186; 87389; 93005; 93010; 93306-TC; 97116-GP; 97162-GP; 99291; C1751; C9803; G0480; J0131; U0003; U0005